=== PATIENT | female | born 1945 | race Caucasian/White ===

== ENCOUNTER 2021-04-30 05:26 | Observation (INO) | payer MEDICARE ==
[2021-04-30] MEDS ORDERED: Morphine 4 MG/ML VIAL ONE (05:53)
[2021-04-30] MEDS ORDERED: Ondansetron PF 4 MG/2 ML Vial ONE (05:54)
[2021-04-30 06:02] LABS: Hemoglobin 10.9 g/dL (12.0-15.5); MDiff Complete? YES; Mean Corpuscular HGB CONC 31.8 g/dL (32.0-36.0); Mean Corpuscular Hemoglobin 31.4 pg (27.0-33.0); Mean Corpuscular Volume 98.8 fl (81.6-98.3); Platelet Count 182 10x3/uL (150-450); RBC Distribution Width 13.8 % (11.5-14.5); Red Blood Cell (RBC) Count 3.47 10x6/uL (3.90-5.03); White Blood Cell (WBC) Count 5.9 10x3/uL (3.5-10.5)
[2021-04-30 06:16] LABS: ALT (SGPT) 103 U/L (8-55); AST (SGOT) 198 U/L (5-34); Albumin 3.8 g/dL (3.4-4.8); Alkaline Phosphatase 209 U/L (40-110); Anion Gap 13 mmol/L (10-20); BUN (Urea Nitrogen) 18 mg/dL (9.8-20.1); Bilirubin, Total 0.5 mg/dL (0.2-1.2); Calc. Creatinine Clearance 0 mL/min (70-130); Carbon Dioxide 31 mmol/L (23-31); Chloride 105 mmol/L (98-107); Glucose 109 mg/dL (83-110); Lipase 42 U/L (8-78); Magnesium 2.6 mg/dL (1.6-2.6); Potassium 5.8 mmol/L (3.5-5.1); Protein, Total 6.8 g/dL (5.8-8.1); Sodium 143 mmol/L (136-145)
[2021-04-30] MEDS ORDERED: Sodium Bicarb 50 MEQ/50 ML Abboject 8.4% SYRINGE ONE (06:45)
[2021-04-30] MEDS ORDERED: Calcium Chloride 1 GM/10 ML Abboject SYRINGE ONE ×2 (06:45)
[2021-04-30 07:06] LABS: Eosinophils 1 % (0-10); Lymphocytes 23 % (21-51); Monocytes 17 % (0-10); Neutrophil 57 % (42-75); Reactive Lymphocytes 1 % (0-10)
[2021-04-30 07:07] LABS: Platelet Morphology Comment Appears Adequate; RBC Morphology Normal
[2021-04-30 07:40] LABS: Bilirubin Neg (Negative); Blood, Urine Negative (Negative); Clarity Slightly Cloudy (Clear); Glucose, Urine (Dipstick) Normal (Negative); Ketone, Urine Negative (Negative); Leukocyte 500 (Negative); Nitrite Positive (Negative); Protein, Urine (Dipstick) Negative (Neg-Trace); Specific Gravity, Urine 1.005 (1.002-1.036); Urobilinogen Normal mg/dL (Less than 2)
[2021-04-30 08:00] LABS: Bacteria/HPF 2+ HPF (None Seen); Squamous Epithelial 0-3 HPF (0-3)
[2021-04-30] MEDS ORDERED: Piperacillin/Tazobactam 4.5 GM VIAL ONE (08:20)
[2021-04-30 08:40] LABS: Lactic Acid 1.3 mmol/L (0.5-2.2)
[2021-04-30 09:34] LABS: SARS-CoV-2 NAA Rapid Test Not Detected (NotDetected)
[2021-04-30] MEDS ORDERED: Ondansetron ODT 4 MG TAB PO PRN (13:32)
[2021-04-30] MEDS ORDERED: Electrolyte Replacement Protocol 1 EACH FS SCH (13:45)
[2021-04-30] MEDS ORDERED: Sodium Chloride 0.9% 1,000 ML IV SCH (13:45)
[2021-04-30] MEDS ORDERED: Piperacillin/Tazobactam 3.375 GM in Sodium Chloride 0.9% 100 ML IVPB SCH (14:00)
[2021-04-30 15:27] VITALS: BMI 28.2
[2021-04-30] MEDS ORDERED: Vancomycin 1 GM in Premix Bag 1 BAG IVPB PRN (15:55)
[2021-04-30] MEDS ORDERED: Vancomycin 1.5 GRAM/300 ML BAG 1.5 GM in Premix Bag 1 BAG IVPB SCH (16:00)
[2021-04-30] MEDS ORDERED: Baclofen 10 MG TAB PO SCH (16:00)
[2021-04-30 16:04] LABS: INR-International Normal Ratio 0.9; Prothrombin Time 9.9 sec (9.5-12.1)
[2021-04-30 16:10] LABS: Iron 129 ug/dL (50-170); Iron Binding Capacity, Total 306 mcg/dL (265-497)
[2021-04-30 16:43] LABS: Phosphorus 4.8 mg/dL (2.3-4.7)
[2021-04-30] MEDS: Piperacillin/Tazobactam 3.375 GM in Sodium Chloride 0.9% 100 ML IVPB SCH (20:18)
[2021-04-30] MEDS: Acetaminophen 325 MG TAB PO PRN (20:31)
[2021-04-30] MEDS: DULoxetine 30 MG CAP PO SCH (20:31)
[2021-04-30] MEDS: Mirtazapine 15 MG TAB PO SCH (20:32)
[2021-04-30] MEDS: Baclofen 10 MG TAB PO SCH ×2 (20:32→20:37)
[2021-04-30] MEDS: HYDROcodone/Acetaminophen 5/325 mg Tablet PO PRN (22:11)
[2021-05-01] MEDS: Piperacillin/Tazobactam 3.375 GM in Sodium Chloride 0.9% 100 ML IVPB SCH ×4 (01:29→23:43)
[2021-05-01] MEDS: HYDROcodone/Acetaminophen 5/325 mg Tablet PO PRN (06:04)
[2021-05-01 06:49] LABS: #Basophils 0.1 10x3/uL (0.0-0.2); #Eosinphils 0.1 10x3/uL (0.0-0.5); #Monocytes 0.7 10x3/uL (0.0-1.1); #Neutrophils 2.6 10x3/uL (1.5-8.4); %Basophils 0.9 % (0.0-2.0); %Lymphocytes 38.2 % (18.0-47.0); %Monocytes 12.8 % (0.0-10.0); %Neutrophils 45.9 % (40.0-75.0); Hemoglobin 10.9 g/dL (12.0-15.5); Mean Corpuscular HGB CONC 31.7 g/dL (32.0-36.0); Mean Corpuscular Hemoglobin 31.2 pg (27.0-33.0); Mean Corpuscular Volume 98.6 fl (81.6-98.3); Mean Platelet Volume 11.5 fl (7.4-10.4); Platelet Count 169 10x3/uL (150-450); RBC Distribution Width 13.7 % (11.5-14.5); Red Blood Cell (RBC) Count 3.49 10x6/uL (3.90-5.03); White Blood Cell (WBC) Count 5.6 10x3/uL (3.5-10.5)
[2021-05-01 06:50] LABS: ALT (SGPT) 88 U/L (8-55); AST (SGOT) 88 U/L (5-34); Albumin 3.5 g/dL (3.4-4.8); Alkaline Phosphatase 171 U/L (40-110); Anion Gap 14 mmol/L (10-20); BUN (Urea Nitrogen) 18 mg/dL (9.8-20.1); Bilirubin, Total 0.7 mg/dL (0.2-1.2); Calc. Creatinine Clearance 53 mL/min (70-130); Calcium 8.9 mg/dL (7.8-10.44); Carbon Dioxide 29 mmol/L (23-31); Chloride 109 mmol/L (98-107); Globulin 2.7 g/dL (2.4-3.5); Glucose 94 mg/dL (83-110); Magnesium 2.2 mg/dL (1.6-2.6); Potassium 4.5 mmol/L (3.5-5.1); Protein, Total 6.2 g/dL (5.8-8.1); Sodium 147 mmol/L (136-145)
[2021-05-01] MEDS ORDERED: Thyroid 60 MG TAB PO SCH ×2 (08:45→09:00)
[2021-05-01] MEDS: Atenolol 50 MG TAB PO SCH (08:50)
[2021-05-01] MEDS: DULoxetine 30 MG CAP PO SCH ×2 (08:50→20:19)
[2021-05-01] MEDS: Amlodipine 5 MG TAB PO SCH (08:50)
[2021-05-01] MEDS: Baclofen 10 MG TAB PO SCH ×3 (08:51→20:19)
[2021-05-01] MEDS: Acetaminophen 325 MG TAB PO PRN ×3 (11:50→20:19)
[2021-05-01 13:18] LABS: HBSAg Index 0.28 S/CO (0-0.99); Hep B Surf Ag Non-Reactive S/CO (NonReactive); Vitamin B12 267 pg/mL (211-911)
[2021-05-01 15:21] LABS: Hep C IgG Ab Non-Reactive (NonReactive); Hep C Index 0.18 S/CO (0-0.79)
[2021-05-01 15:22] LABS: Hep A IgM AB Non-Reactive (NonReactive); Hep A IgM S/CO 0.49 S/CO (0-0.79)
[2021-05-01 15:23] LABS: HBCM Index 0.05 S/CO (0-0.79); Hepatitis B Core IgM Abs Non-Reactive (NonReactive)
[2021-05-01 16:48] LABS: HBSAB Concentration 7.77 mIU/mL; Hep B Surf AB NonReactive (NonReactive)
[2021-05-01 16:52] LABS: Vancomycin, Trough 8.2 ug/mL
[2021-05-01] MEDS ORDERED: VANCOMYCIN 1.25 GM/250 ML BAG 1.25 GM in Premix Bag 1 BAG IVPB SCH ×2 (18:30→21:00)
[2021-05-01] MEDS: Mirtazapine 15 MG TAB PO SCH (20:19)
[2021-05-02] MEDS: Acetaminophen 325 MG TAB PO PRN (01:45)
[2021-05-02] MEDS ORDERED: Thyroid 30 MG TAB PO SCH (06:00)
[2021-05-02] MEDS ORDERED: Thyroid 60 MG TAB PO SCH (06:30)
[2021-05-02 08:26] LABS: #Basophils 0.1 10x3/uL (0.0-0.2); #Monocytes 0.4 10x3/uL (0.0-1.1); #Neutrophils 3.4 10x3/uL (1.5-8.4); %Basophils 0.9 % (0.0-2.0); %Eosinophils 0.5 % (0.0-6.0); %Lymphocytes 31.6 % (18.0-47.0); %Monocytes 7.5 % (0.0-10.0); %Neutrophils 59.2 % (40.0-75.0); Hemoglobin 10.5 g/dL (12.0-15.5); Mean Corpuscular Volume 96.8 fl (81.6-98.3); Mean Platelet Volume 11.5 fl (7.4-10.4); Platelet Count 179 10x3/uL (150-450); RBC Distribution Width 13.5 % (11.5-14.5); Red Blood Cell (RBC) Count 3.39 10x6/uL (3.90-5.03); White Blood Cell (WBC) Count 5.7 10x3/uL (3.5-10.5)
[2021-05-02 08:54] LABS: ALT (SGPT) 61 U/L (8-55); AST (SGOT) 45 U/L (5-34); Albumin 3.9 g/dL (3.4-4.8); Alkaline Phosphatase 142 U/L (40-110); Anion Gap 16 mmol/L (10-20); BUN (Urea Nitrogen) 13 mg/dL (9.8-20.1); Bilirubin, Total 0.7 mg/dL (0.2-1.2); Calc. Creatinine Clearance 72 mL/min (70-130); Calcium 9.1 mg/dL (7.8-10.44); Carbon Dioxide 23 mmol/L (23-31); Cardiac Risk 3.1 (Less than 4.5); Chloride 109 mmol/L (98-107); Cholesterol 147 mg/dl (< 200 Desired); Globulin 3.1 g/dL (2.4-3.5); Glucose 97 mg/dL (83-110); HDL Cholesterol 48 mg/dL (>60 Neg Risk); LDL Cholesterol, Calculated 71 mg/dL; Potassium 3.5 mmol/L (3.5-5.1); Sodium 144 mmol/L (136-145); Triglycerides 139 mg/dL (Less than 150)
[2021-05-02] MEDS: Baclofen 10 MG TAB PO SCH ×2 (09:47→15:26)
[2021-05-02] MEDS: Atenolol 50 MG TAB PO SCH (09:47)
[2021-05-02] MEDS: DULoxetine 30 MG CAP PO SCH (09:47)
[2021-05-02] MEDS: Piperacillin/Tazobactam 3.375 GM in Sodium Chloride 0.9% 100 ML IVPB SCH ×2 (09:47→15:26)
[2021-05-02] MEDS: Amlodipine 5 MG TAB PO SCH (09:48)
[2021-05-02] MEDS ORDERED: Potassium Bicarbonate/Cit Ac 20 MEQ TAB PO SCH ×2 (10:00→16:30)
[2021-05-02 11:36] VITALS: TEMP 99
[2021-05-02 13:18] LABS: EliA Vaculitis New Method **** NEW METHOD ****
[2021-05-02 16:11] LABS: Potassium 3.5 mmol/L (3.5-5.1)
[2021-05-02 16:30] VITALS: BP 142/81
[2021-05-03] MEDS ORDERED: Thyroid 60 MG TAB PO SCH (06:00)
[2021-05-03 12:38] LABS: Smooth Muscle Total ABS 15 Units (0-19)
[2021-05-07 11:38] LABS: Alpha-1-Antitrypsin 152 mg/dL (101-187)
== END 2021-05-02 16:31 | disposition home or self-care (01) ==
LOC: CSHERS 05:26 → INTOOBSV 13:12 → CSHERHOLD 13:12 → CSHTELE 18:19
PROVIDERS: ADMIT Family Medicine; ATTEND Nurse Practitioner Family
DX: G93.41 Metabolic encephalopathy (principal); N17.9 Acute kidney failure, unspecified; N39.0 Urinary tract infection, site not specified; B96.20 Unspecified Escherichia coli [E. coli] as the cause of diseases classified elsewhere; E87.5 Hyperkalemia; R74.01 Elevation of levels of liver transaminase levels; W18.30XA Fall on same level, unspecified, initial encounter; Y92.008 Other place in unspecified non-institutional (private) residence as the place of occurrence of the external cause; M54.2 Cervicalgia; M54.50 Low back pain, unspecified; G89.29 Other chronic pain; I10 Essential (primary) hypertension; E78.5 Hyperlipidemia, unspecified; E03.9 Hypothyroidism, unspecified; K83.8 Other specified diseases of biliary tract; R94.5 Abnormal results of liver function studies; Z20.822 Contact with and (suspected) exposure to COVID-19; Z79.899 Other long term (current) drug therapy; Z79.891 Long term (current) use of opiate analgesic
CPT/HCPCS: 70450; 71045; 72125; 72170; 72192; 74183; 76705; 80053 ×2; 80061; 80074; 80202; 82103; 82104; 82550; 82607; 82728; 82746; 83516; 83540; 83550; 83605; 83690; 83735 ×2; 84100; 84132; 84484; 85025 ×2; 85610; 86706; 86708; 87040; 87077; 87086; 87186; 93005; 93306; 96365; 96375 ×2; 96376; 97116; 97530; 99285; G0378 ×4; U0002; 36415; 81003; 81015; 84443; J2270; J2405; J2543; J3370; J3490; J7050